=== PATIENT | female | born 1960 ===

== ENCOUNTER 2022-06-05 21:32 | Emergency (ER) | payer MEDICARE, MEDICAID, SELFPAY ==
[2022-06-05 21:35] VITALS: BP 130/91; PULSE 110; RESP 20; TEMP 36.9; O2SAT 100
--- NOTE | 2022-06-05 21:38 | DI.RAD.S_ITS ---
PROCEDURE: XR RIBS RT MIN 3V W CXR 1V INDICATIONS: fall TECHNIQUE: Two views of the right ribs and single PA view of the chest. COMPARISON: [facility], , RIBS UNILATERAL WITH PA CXR, 04/29/2014, 20:26. FINDINGS: Remote right posterolateral rib fractures. No acute rib fracture identified. No pleural effusion or pneumothorax. The lungs are clear. Scoliosis. IMPRESSION: No evidence of an acute rib fracture. Dictated by: Silvio Mcadams M.D. on 06/05/2022 at 22:10 Approved by: Silvio Mcadams M.D. on 06/05/2022 at 22:11
--- NOTE | 2022-06-06 00:43 | ED.URI ---
HPI - URI/Sore Throat General Chief Complaint: Upper Respiratory Symptoms Stated Complaint: COUGHING Time Seen by Provider: 06/06/22 00:37 Source: patient Mode of arrival: Ambulatory History of Present Illness HPI Narrative: 61F smoker with noncontributory medical history presents with a chief complaint of right anterior rib pain after a ground level fall a few days ago. She states that she had tripped and fallen over onto her side and hit her ribs on a counter and now has pain with palpation, motion and deep breaths. She is had increasing cough with occasional sputum but no blood. She is not dizzy nor weak or lightheaded. She denies fever or chills. She denies nausea, vomiting or diarrhea. Related Data Previous Rx's Medication Instructions Recorded doxycycline hyclate 100 mg tablet 100 mg PO BID #20 tabs 06/06/22 hydrocodone 5 mg-acetaminophen 325 1 tab PO Q4-6H PRN pain #10 tabs 06/06/22 mg tablet lidocaine 5 % topical patch 1 patch topical DAILY #15 ea 06/06/22 (Lidoderm) Allergies Allergy/AdvReac Type Severity Reaction Status Date / Time ibuprofen [IBUPROFEN] Allergy Unknown Verified 04/14/22 14:00 naproxen [NAPROXEN] Allergy Unknown Verified 04/14/22 14:00 MIGRAINE MEDICATION UNKNOWN Allergy Unknown Uncoded 04/14/22 14:00 Review of Systems Review of Systems Narrative: GENERAL: Denies chills, fatigue, malaise, fever, sweats. HEENT: Denies sinus pain, ear pain, sore throat, difficulty swallowing, dizziness. RESPIRATORY: See HPI CARDIOVASCULAR: Denies chest pain, palpitations, orthopnea, edema, GASTROINTESTINAL: Denies nausea, vomiting, abdominal pain, diarrhea, constipation, melena. : Denies dysuria, frequency, incontinence, hematuria, urinary retention. MUSCULOSKELETAL: denies weakness, joint pain, or bony pain SKIN: Denies rash, skin lesions, or other NEUROLOGIC: Denies weakness, headache, numbness, change in speech, confusion, seizures, incoordination. PSYCHIATRIC: No concerning psychosocial issues. 12 point review of systems is negative except for those stated above Exam Narrative Exam Narrative: GENERAL: [61] year old patient appears stated age. Well-developed patient, in mild distress. Complaining of pain in her right anterior ribs and rubbing them HEAD: Atraumatic. Normocephalic. EYES: Pupils equal round and reactive. Extraocular motions intact. No scleral icterus. No injection or drainage. ENT: Nose without bleeding, purulent drainage. Throat without erythema, tonsillar hypertrophy or exudate. Airway patent. NECK: Trachea midline. Non tender CARDIOVASCULAR: Regular rate and rhythm without murmurs, gallops, or rubs. RESPIRATORY: Tenderness to palpation along right anterior ribs without crepitance, bruising, or edema. Deep breaths clearly elicit pain, no rales, rhonchi GASTROINTESTINAL: Abdomen soft, non-tender, nondistended. EXTREMITIES: No edema or joint tenderness. BACK: Nontender without deformity or crepitance. No flank tenderness. NEURO: AOx3. SKIN: No rash or erythema of visible areas Initial Vital Signs Initial Vital Signs: Vital Signs Temperature 98.5 F 06/05/22 21:35 Pulse Rate 110 H 06/05/22 21:35 Respiratory Rate 20 06/05/22 21:35 Blood Pressure 130/91 H 06/05/22 21:35 Pulse Oximetry 100 06/05/22 21:35 Oxygen Delivery Method 06/05/22 21:35 Course Orders Ordered: ED Orders 06/05/22 21:38 XR ribs RT min 3V w CXR1V Stat Discontinued Medications Hydrocodone Bitart/Acetaminophen (Hydrocodone/Acet 5/325 Prepack) 1 bottle MISC SEEINSTR ONE Stop: 06/06/22 00:44 Last Admin: 06/06/22 00:53 Dose: 1 bottle Documented By: BARNEY Doxycycline Hyclate (Doxycycline Hyclate 100 Mg Tablet) 100 mg PO NOW ONE Stop: 06/06/22 00:44 Last Admin: 06/06/22 00:53 Dose: 100 mg Documented By: BARNEY Lidocaine (Lidocaine Patch 1 Each Adh..Patch) 1 each TOP NOW ONE Stop: 06/06/22 00:44 Last Admin: 06/06/22 00:53 Dose: 1 each Documented By: BARNEY Vital Signs Vital signs: Vital Signs - 8 hr 06/05/22 21:35 06/06/22 01:02 Temperature 98.5 F Pulse Rate 110 H 76 Respiratory Rate 20 17 Blood Pressure 130/91 H Pulse Oximetry 100 96 Oxygen Delivery Method Room Air Room Air MDM - URI/Sore Throat Imaging Data Chest x-ray: Radiologist's Impression: [address] [address] XRay Report Signed Patient: Kristen Landin MR#: [id number] : 1960 Acct:[id number] Age/Sex: 61 / F Date of Service: 06/05/22 Loc: ED Accession Number: [id number] ?? Procedure: XR ribs RT min 3V w CXR1V Ordering Provider: Marcos Augustine D.O. PROCEDURE:? XR RIBS RT MIN 3V W CXR 1V ? INDICATIONS:? fall ? TECHNIQUE:? Two views of the right ribs and single PA view of the chest. ? COMPARISON:? [facility], CR, RIBS UNILATERAL WITH PA CXR, 04/29/2014, 20:26. ? FINDINGS:? ? Remote right posterolateral rib fractures.? No acute rib fracture identified.? No pleural effusion or pneumothorax.? The lungs are clear.? Scoliosis. ? IMPRESSION:? No evidence of an acute rib fracture. ? ? Dictated by: Silvio Mcadams M.D. on 06/05/2022 at 22:10 ? ? Approved by: Silvio Mcadams M.D. on 06/05/2022 at 22:11 ? Discharge Plan Departure Patient Disposition: Home Clinical Impression: Contusion of rib on right side, Atypical pneumonia Instructions: DI for Rib Contusion Activity Restrictions/Additional Instructions: *You have been diagnosed with [rib contusion with possible atypical pneumonia. Physical exam and chest x-ray are reassuring and there is no obvious rib fracture] *What to do: *Please continue to take your regular medications as directed. [x ] New medication prescriptions sent to your pharmacy: [ [facility]] [ ] New medication written as a paper prescription [ ] No new medications given *Please follow up with your primary care provider in 2-3 days, call for an appointment. Let them know you were seen in the Emergency Department and that we ask that you be seen in follow up. We will electronically transmit a record of today's note if your PCP is in our system *If you do not have a primary care provider please contact the [facility] Resource line at [phone]. They will ask some questions about your medical history and help get you set up with a doctor in the community. *Return to Emergency Department if you should have any new, worsening or concerning symptoms, such as [fever greater than 101 F, shaking chills, worsening pain, persistent vomiting or other bothersome symptoms] Prescriptions: New hydrocodone-acetaminophen 5-325 mg tablet 1 tab PO Q4-6H PRN (Reason: pain) Qty: 10 0RF lidocaine [Lidoderm] 5 % adhesive patch,medicated 1 patch TOP DAILY Qty: 15 0RF Rx Instructions: leave on most painful area for 12 hrs doxycycline hyclate 100 mg tablet 100 mg PO BID Qty: 20 0RF Visit Report Forms: Patient Portal/API
[2022-06-06] MEDS: DOXYCYCLINE HYCLATE 100 MG TABLET PO (00:53)
[2022-06-06] MEDS: LIDOCAINE PATCH 1 EACH ADH..PATCH TOP (00:53)
[2022-06-06] MEDS: HYDROCODONE/ACET 5/325 PREPACK 1 BOTTLE MISC (00:53)
[2022-06-06 01:02] VITALS: PULSE 76; RESP 17; O2SAT 96
== END 2022-06-06 01:02 | disposition home or self-care (01) ==
PROVIDERS: Emergency Provider Emergency Medicine
DX: S20.211A Contusion of right front wall of thorax, initial encounter (principal); J18.9 Pneumonia, unspecified organism; W19.XXXA Unspecified fall, initial encounter
CPT/HCPCS: 71101; 99283

== ENCOUNTER 2025-03-09 03:48 | Emergency (ER) | payer MEDICARE, MEDICAID, SELFPAY ==
[2025-03-09 05:04] VITALS: BP 173/98; PULSE 82; RESP 22; TEMP 36.7; O2SAT 98; BMI 20.9
--- NOTE | 2025-03-09 05:08 | DI.RAD.S_ITS ---
PROCEDURE: XR SHOULDER RT MIN 2V INDICATIONS: pain TECHNIQUE: 3 views of the shoulder were acquired. COMPARISON: None. FINDINGS: Bones: No fractures or dislocations. No suspicious bony lesions. Visualized ribs appear intact. Soft tissues: No suspicious soft tissue calcifications. IMPRESSION: No acute bony abnormality. Agree with preliminary report. Dictated by: Gonzalez Perkins M.D. on 03/09/2025 at 8:19 Approved by: Gonzalez Perkins M.D. on 03/09/2025 at 8:20
[2025-03-09 05:16] LABS: Appearance Urine UA SL CLOUDY; Bilirubin Urine UA NEGATIVE (NEGATIVE); Color Urine UA YELLOW; Glucose Urine UA NEGATIVE (Negative); Ketones Urine UA NEGATIVE (NEGATIVE); Leukocyte Esterase Urine UA 3+ (NEGATIVE); Nitrite Urine UA POSITIVE (Negative); Occult Blood Urine UA 3+ (Negative); Protein Urine UA 1+ (Negative); Urobilinogen Urine UA 0.2 E.U./dL (0.2)
[2025-03-09 05:22] LABS: Bacteria Urine Many (>30); Culture Indicated Urine Specimen Cultured; RBC Urine 30-100/HPF (0-5/HPF); Squamous Epithelial Cell Urine 0-1 /HPF (0-5/HPF); Urine Volume 10mL (spun); WBC Urine >100/HPF (0-5/HPF)
--- NOTE | 2025-03-09 06:23 | ED.GENADULT ---
HPI - General Adult General Chief complaint: Extremity Injury, Upper Stated complaint: bad UTI/ Rt shoulder pain Time Seen by Provider: 03/09/25 05:03 Source: patient Mode of arrival: Ambulatory History of Present Illness HPI narrative: 64-year-old female with history of right shoulder rotator cuff surgery, does not recall any new injuries but having increased right-sided shoulder pain. No shortness of breath or chest pain. She also has painful frequent urination. No fevers or chills. No nausea or vomiting. No diarrhea. Related Data Previous Rx's Medication Instructions Recorded doxycycline hyclate 100 mg tablet 100 mg PO BID #20 tabs 06/06/22 hydrocodone 5 mg-acetaminophen 325 1 tab PO Q4-6H PRN pain #10 tabs 06/06/22 mg tablet lidocaine 5 % topical patch 1 patch topical DAILY #15 ea 06/06/22 (Lidoderm) cefdinir 300 mg capsule 300 mg PO BID 7 days #14 caps 03/09/25 Allergies Allergy/AdvReac Type Severity Reaction Status Date / Time ibuprofen [IBUPROFEN] Allergy Unknown Verified 04/14/22 14:00 naproxen [NAPROXEN] Allergy Unknown Verified 04/14/22 14:00 MIGRAINE MEDICATION UNKNOWN Allergy Unknown Uncoded 04/14/22 14:00 Patient History Social History Smoking Status: Current every day smoker Smoking Status: Current every day smoker Exam Narrative Exam Narrative: GENERAL: Well-developed patient, in mild distress. HEAD: Atraumatic. Normocephalic. EYES: Pupils equal round and reactive. Extraocular motions intact. No scleral icterus. No injection or drainage. ENT: Nose without bleeding, purulent drainage. Throat without erythema, tonsillar hypertrophy or exudate. Airway patent. NECK: Trachea midline. Non tender CARDIOVASCULAR: Regular rate and rhythm, has 2/6 systolic murmur right upper sternal border best heard, patient informed of murmur which apparently is new information to her. RESPIRATORY: Clear to auscultation. Breath sounds equal bilaterally. No wheezes, rales, or rhonchi. GASTROINTESTINAL: Abdomen soft, non-tender, nondistended. EXTREMITIES: Some tenderness anterior deltoid and bicipital groove right shoulder, no gross deformity, can flex and extend full range of motion. BACK: Nontender without deformity or crepitance. No flank tenderness. NEURO: AOx3. Motor functions grossly nonfocal SKIN: No rash or erythema of visible areas Initial Vital Signs Initial Vital Signs: Vital Signs Temperature 98.0 F 03/09/25 05:04 Pulse Rate 82 03/09/25 05:04 Respiratory Rate 22 03/09/25 05:04 Blood Pressure 173/98 H 03/09/25 05:04 Pulse Oximetry 98 03/09/25 05:04 Oxygen Delivery Method Room Air 03/09/25 05:04 Course Orders Ordered: Discontinued Medications Cefdinir (Cefdinir 300 Mg Capsule) 300 mg PO NOW ONE Stop: 03/09/25 05:49 Last Admin: 03/09/25 06:36 Dose: 300 mg Documented By: REBECCA Vital Signs Vital signs: Vital Signs - 8 hr 03/09/25 05:04 Temperature 98.0 F Pulse Rate 82 Respiratory Rate 22 Blood Pressure 173/98 H Pulse Oximetry 98 Oxygen Delivery Method Room Air Medical Decision Making Lab Data Labs: Lab Results 03/09/25 Range/Units 05:11 Urine Color Yellow Urine Appearance Sl cloudy Urine pH 6.0 (4.5-8.0) Ur Specific [place] 1.020 (1.000-1.035) Urine Protein 1+ H (Negative) Urine Glucose (UA) Negative (Negative) g/dL Urine Ketones Negative (NEGATIVE) Urine Occult Blood 3+ H (Negative) Urine Nitrate Positive H (Negative) Urine Bilirubin Negative (NEGATIVE) Urine Urobilinogen 0.2 (0.2) E.U./dL Ur Leukocyte Esterase 3+ H (NEGATIVE) Urine RBC 30-100/hpf H (0-5/HPF) Urine WBC >100/hpf H (0-5/HPF) Ur Squamous Epith Cells 0-1 /hpf (0-5/HPF) Urine Bacteria Many (>30) H (None) Ur Culture Indicated? Specimen cultured Vol Urine Centrifuged 10ml (spun) MDM Narrative Medical decision making narrative: Right nontraumatic right shoulder pain, history of rotator cuff repair on that side, some tenderness deltoid and bicipital groove. No gross deformity. X-ray right shoulder ordered from triage. Also patient has frequency and painful urination, urinalysis requested. X-ray three views right shoulder. Impressions: ?No acute findings.? See tele radiology report Patient made aware of x-ray results, she prefers shoulder sling when offered, ordered. Urinalysis suspicious for infection. Urine culture requested. Oral cefdinir 1st dose now, prescription sent to her pharmacy for further course of antibiotic. Discharge Plan Departure Patient Disposition: Home Clinical Impression: Right shoulder strain, Urinary tract infection, Heart murmur Activity Restrictions/Additional Instructions: Right shoulder pain, history of rotator cuff repair on that side, no specific injury recalled. Some tenderness along the bicipital groove on the right shoulder, also along the deltoid musculature. No bruising or skin changes. X-ray of the right shoulder showed no acute changes. Consider shoulder strain. Shoulder sling applied, follow up with your regular doctor advised in next 2-3 days to reassess symptoms. You also had symptoms of urinary tract infection, urinalysis was suspicious. Urine culture is pending. First dose antibiotic given. Prescription for further course antibiotics sent to your pharmacy. Take antibiotics as directed. Drink plenty of fluids. Take Tylenol and or Motrin as needed for pain control. Drink plenty of fluids. Return earlier to this/nearest emergency department for any change worsening symptoms or any concerns prior. You also happen to have a systolic heart murmur noted on your physical exam. You were not aware of having a heart murmur. Consider further workup of this murmur as an outpatient, your doctor might order in ultrasound of the heart (echocardiogram) to further evaluate. Prescriptions: New cefdinir 300 mg capsule 300 mg PO BID 7 Days Qty: 14 0RF No Action hydrocodone-acetaminophen 5-325 mg tablet 1 tab PO Q4-6H PRN (Reason: pain) Qty: 10 0RF lidocaine [Lidoderm] 5 % adhesive patch,medicated 1 patch TOP DAILY Qty: 15 0RF Rx Instructions: leave on most painful area for 12 hrs doxycycline hyclate 100 mg tablet 100 mg PO BID Qty: 20 0RF Stand Alone Forms: Patient Portal/API/Survey
[2025-03-09] MEDS: CEFDINIR 300 MG CAPSULE PO (06:36)
[2025-03-09 06:53] VITALS: BP 168/91; PULSE 81; RESP 22; O2SAT 97
== END 2025-03-09 06:53 | disposition home or self-care (01) ==
PROVIDERS: Emergency Provider Emergency Medicine
DX: S46.911A Strain of unspecified muscle, fascia and tendon at shoulder and upper arm level, right arm, initial encounter (principal); N39.0 Urinary tract infection, site not specified; R01.1 Cardiac murmur, unspecified
CPT/HCPCS: 73030; 81001; 87077; 87086; 87186; 99283

== ENCOUNTER → 2025-09-29 14:53 | Outpatient (CLI) | payer MEDICARE, MEDICAID, SELFPAY | PROVIDERS: Visit Provider Chiropractor | DX: R30.0 Dysuria (principal) | CPT/HCPCS: 87077; 87086 ==